=== PATIENT | female | born 1975 | race African-American/Black ===

== ENCOUNTER 2021-09-30 12:00 | Inpatient (IN) | payer BC, OTHER ==
[2021-11-21 15:13] VITALS: BMI 26.0
[2021-11-25] MEDS ORDERED: ceFAZolin SODIUM 1 GM VIAL ONE ×3 (09:32→19:57)
[2021-11-25] MEDS ORDERED: BUPIVACAINE HCL/PF 0.5% (5MG/ML) 10 ML VIAL ONE (10:34)
[2021-11-25] MEDS ORDERED: BUPIVACAINE LIPOSOME/PF (EXPAREL) 266 MG/20 ML VIAL ONE (10:34)
[2021-11-25] MEDS ORDERED: MIDAZOLAM HCL 2 MG/2 ML SINGLE DOSE VIAL ONE ×2 (10:35)
[2021-11-25] MEDS ORDERED: LIDOCAINE HCL/PF 2% SDV 5ML VIAL ONE (10:52)
[2021-11-25] MEDS ORDERED: PROPOFOL 20 ML ONE ×2 (10:52)
[2021-11-25] MEDS ORDERED: HYDROmorphone HCl 2 MG/ML VIAL ONE ×2 (10:52→15:32)
[2021-11-25] MEDS ORDERED: ROCURONIUM BROMIDE 50 MG/5 ML SYRINGE ONE (12:18)
[2021-11-25] MEDS ORDERED: ceFAZolin 2 GRAM PREMIX BAG IVPB ONE (12:30)
[2021-11-25] MEDS ORDERED: CEFAZOLIN 2 GM/D5W 2 GM/50 ML ML IVPB ONE (12:30)
[2021-11-25] MEDS ORDERED: ONDANSETRON 4 MG/2 ML VIAL ONE (12:46)
[2021-11-25] MEDS ORDERED: DEXAMETHASONE SOD PHOSPHATE 4 MG/1 ML VIAL ONE (12:46)
[2021-11-25] MEDS ORDERED: GLYCOPYRROLATE 0.2 MG/1 ML VIAL ONE (13:08)
[2021-11-25] MEDS ORDERED: NEOSTIGMINE METHYLSULFATE 0.5 MG/1 ML - 10 ML MDV ONE (13:08)
[2021-11-25] MEDS ORDERED: KETOROLAC TROMETHAMINE 30 MG/1 ML VIAL ONE (13:42)
[2021-11-25] MEDS ORDERED: ONDANSETRON 4 MG/2 ML VIAL IVPUSH PRN (14:35)
[2021-11-25] MEDS ORDERED: TRANEXAMIC ACID 1000 MG/10 ML VIAL IVPUSH ONE (14:42)
[2021-11-25] MEDS ORDERED: LACTATED RINGERS SOLUTION 1,000 ML IV SCH (14:45)
[2021-11-25] MEDS ORDERED: oxyCODONE HCL 5 MG TABLET PO PRN ×2 (14:55)
[2021-11-25] MEDS ORDERED: SIMETHICONE 80 MG TAB.CHEW (FP) PO PRN (14:55)
[2021-11-25] MEDS: HYDROmorphone HCl 2 MG/ML VIAL IVPUSH PRN ×4 (15:35→16:20)
[2021-11-25] MEDS ORDERED: HYDROmorphone HCL CARPU-JECT 2 MG/1 ML DISP.SYRIN IVPUSH PRN (15:35)
[2021-11-25] MEDS ORDERED: HYDROmorphone *PCA* 10MG/50ML DISP.SYRIN PCA SCH (16:15)
[2021-11-25] MEDS ORDERED: ACETAMINOPHEN INJECTION 100 ML IVPB ONE (16:22)
[2021-11-25] MEDS ORDERED: HYDROmorphone *PCA* 10MG/50ML DISP.SYRIN ONE (16:28)
[2021-11-25] MEDS ORDERED: ACETAMINOPHEN 1000 MG/100 ML BAG IVPB ONE (16:33)
[2021-11-25] MEDS: ACETAMINOPHEN 500 MG TABLET (FP) PO SCH ×2 (17:37→22:53)
[2021-11-25] MEDS ORDERED: DEXTROSE 5%-WATER - 50 ML IVPB ONE (19:56)
[2021-11-25] MEDS: CEFAZOLIN 1 GM in DEXTROSE 5%-WATER - 50 ML IVPB SCH (19:59)
[2021-11-26] MEDS: KETOROLAC TROMETHAMINE 30 MG/1 ML VIAL IVPUSH SCH ×3 (00:06→11:30)
[2021-11-26] MEDS: CEFAZOLIN 1 GM in DEXTROSE 5%-WATER - 50 ML IVPB SCH ×2 (03:56→11:36)
[2021-11-26] MEDS ORDERED: ceFAZolin SODIUM 1 GM VIAL ONE ×2 (03:57→11:28)
[2021-11-26] MEDS ORDERED: DEXTROSE 5%-WATER - 50 ML IVPB ONE ×2 (03:57→11:27)
[2021-11-26] MEDS: ACETAMINOPHEN 500 MG TABLET (FP) PO SCH ×2 (04:48→11:35)
[2021-11-26 08:19] LABS: BLOOD UREA NITROGEN 12.2 mg/dL (7-18); CALCIUM 8.4 mg/dL (8.5-10.1)
[2021-11-26 08:23] LABS: CREATININE 0.7 mg/dL (0.55-1.3)
[2021-11-26 08:28] LABS: HEMOGLOBIN 11.7 GM/dL (10.7-15.3); MCH 28.8 pg (25.7-33.7); MCHC 32.4 g/dl (32.0-36.0); MEAN CELL VOLUME 88.6 fl (80-96); MEAN PLT VOLUME 9.4 fl (7.5-11.1); PLATELET COUNT 252 10^3/uL (134-434); RBC 4.06 M/mm3 (3.60-5.2); RDW 13.4 % (11.6-15.6); WHITE BLOOD COUNT 12.8 K/mm3 (4.0-10.0)
[2021-11-26 08:38] VITALS: TEMP 97.8
[2021-11-26] MEDS ORDERED: ENOXAPARIN NA (PORCINE) 40 MG/0.4 ML DISP.SYRIN SQ SCH (10:00)
[2021-11-26 11:05] VITALS: BP 120/75; PULSE 63
== END 2021-11-26 14:16 | disposition home or self-care (01) | DRG 743 ==
LOC: J2C 11-25 04:36 → EDSTATUS 11-25 13:30 → J3W 11-25 17:43
PROVIDERS: ADMIT Obstetrics & Gynecology Gynecologic Oncology; ATTEND Obstetrics & Gynecology Gynecologic Oncology
PROC: 0UT70ZZ Resection of Bilateral Fallopian Tubes, Open Approach (ICD-10-PCS; 2021-11-25)
PROC: 0UT90ZZ Resection of Uterus, Open Approach (ICD-10-PCS; principal; 2021-11-25 12:00)
DX: D25.0 Submucous leiomyoma of uterus (principal); D25.2 Subserosal leiomyoma of uterus; N92.0 Excessive and frequent menstruation with regular cycle
CPT/HCPCS: 36415; 80048; 81025; 85027; 86850; 86900; 86901; 88108; 88305-TC; 88307-TC; 94760; J0131

== ENCOUNTER 2024-04-28 04:51 | Day surgery (SDC) | payer BC, OTHER ==
[2024-04-26 12:00] VITALS: BMI 28.3
[2024-04-28 09:22] VITALS: TEMP 98
[2024-04-28 11:07] VITALS: BP 107/66; PULSE 67; RESP 103
== END 2024-04-28 11:52 | disposition home or self-care (01) ==
LOC: JASU-ENDO 04:51
PROVIDERS: ATTEND Internal Medicine Gastroenterology
PROC: 0DJD8ZZ Inspection of Lower Intestinal Tract, Via Natural or Artificial Opening Endoscopic (ICD-10-PCS; principal; 2024-04-28 10:00)
DX: Z12.11 Encounter for screening for malignant neoplasm of colon (principal)